=== PATIENT | male | born 1955 | race Two or more races ===

== ENCOUNTER 2023-08-08 18:54 | Emergency (ER) | payer OTHER ==
[~2023-08-08] VITALS: Ht 185.4 cm; Wt 79.6 kg
[2023-08-08 19:50] VITALS: BP 110/66; PULSE 114; RESP 16; O2SAT 98
[2023-08-08 20:25] LABS: Urine Bacteria None Seen /hpf (None Seen)
[2023-08-08 21:12] LABS: Basophils # (auto) 0.1 10 ^3/uL (0-0.2); Basophils % (auto) 0.4 % (0.0-2.0); Eosinophils # (auto) 0.3 10 ^3/uL (0-0.8); Eosinophils % (auto) 1.8 % (0.0-7.0); Hemoglobin 11.3 g/dL (13.5-17.5); Lymphocytes # (auto) 1.6 10 ^3/uL (0.4-5.4); Lymphocytes % (auto) 10.4 % (10.0-50.0); Mean Corpuscular Hemoglobin 27.9 pg (28.0-32.0); Mean Corpuscular Hgb Conc. 33.1 g/dL (32.0-36.0); Mean Corpuscular Volume 84.3 fL (80.0-100.0); Monocytes # (auto) 1.3 10 ^3/uL (0-1.3); Monocytes % (auto) 8.3 % (0.0-12.0); Neutrophils % (auto) 79.1 % (37.0-80.0); Nucleated Red Blood Cells % 0.1 %; Red Blood Cells 4.03 10^6/uL (4.5-5.90); Red Cell Distribution Width 14.9 % (11.8-14.3); White Blood Cell 15.2 10^3/uL (4.4-10.8)
[2023-08-08 21:14] LABS: Urine Blood Negative /uL (Negative); Urine Clarity Clear (Clear); Urine Color Light-Yellow (Yellow); Urine Protein, UAD Negative (Negative); Urine Specific Gravity 1.032 (1.001-1.035); Urine Urobilinogen Normal (Negative); Urine WBC 1 /hpf (0 - 3); Urine pH 5.5 (5.0-9.0)
[2023-08-08 21:18] LABS: Chloride 103 mmol/L (98-107); Potassium 3.3 mmol/L (3.5-5.1); Sodium 135 mmol/L (136-145)
[2023-08-08 21:19] LABS: Anion Gap 9 (5-15); Carbon Dioxide 23 mmol/L (20-30)
[2023-08-08 21:20] LABS: Calcium 9.2 mg/dL (8.7-10.4)
[2023-08-08 21:24] LABS: BUN/Creatinine Ratio 17.6 (10.0-20.0); Blood Urea Nitrogen 16 mg/dL (9-23); Glucose 211 mg/dL (74-106)
[2023-08-09] MEDS ORDERED: AMOX500C2 PO (03:49)
[2023-08-09] MEDS ORDERED: CLIN1CAP70 PO (03:49)
[2023-08-09] MEDS: SODIUM CHLORIDE 0.9% 1,000 ML IV ONE (03:56)
[2023-08-09] MEDS: CLINDAMYCIN 300MG IV 50 ML IV ONE (03:56)
[2023-08-09] MEDS: PIPERACILLIN-TAZOB 3.375GM 100 ML IV ONE (03:56)
== END 2023-08-09 04:28 | disposition left against medical advice (07) ==
LOC: ER 18:54
DX: A41.9 Sepsis, unspecified organism (principal); E11.9 Type 2 diabetes mellitus without complications; I10 Essential (primary) hypertension
CPT/HCPCS: 36415; 70487; 80048; 81001; 83605; 85025; 87040; 96365; 96368; 99285; J2543; J3490